=== PATIENT | female | born 1970 | race Caucasian/White ===

== ENCOUNTER 2017-06-10 18:50 | Emergency (ER) | payer BC, OTHER ==
[~2017-06-10] VITALS: Ht 195.6 cm; Wt 103.6 kg
[2017-06-10 18:52] VITALS: TEMP 36.9; Ht 195.6 cm; Wt 103.6 kg
[2017-06-10] MEDS ORDERED: CEFTRIAXONE SOD INJ 1 GM ADDVIAL IV STA (19:00)
--- NOTE | 2017-06-10 19:08 | EMERGENCY ROOM VISIT NOTE ---
History Report prepared by Ashlynibarcadio: Tracie Krause Under the Supervision of: Dr. Bk Martin D.O. First contact with patient: 18:56 Chief Complaint: SWELLING TO EXTREMITY Stated Complaint: SWOLLEN L LEG BELOW KNEE,RED AND WARM History of Present Illness The patient is a 46 year old female who presents to the Emergency Room with complaints of worsening swelling to her left lower leg for the past 4 to 5 days. She describes her leg as feeling "prickly and burning", but rates her pain as a 0/10. She admits her left ankle is swollen and feels "stiff". She denies any swelling in her groin. She admits to a history of eczema and states she has experienced issues with cellulitis in the past. She denies any history of DVT's. She denies any recent fevers. The patient states there is no chance of . She notes right before Hardy, she developed a rash on her trunk area, and was placed on Prednisone by her PCP. Source of History: patient Onset: 4 to 5 days [employer] Position: leg (left lower leg) Symptom Intensity: 0/10 Quality: burning ("prickly and burning") Timing: worsening Associated Symptoms: No fevers Review of Systems See HPI for pertinent positives & negatives. A total of 10 systems reviewed and were otherwise negative. Past Medical & Surgical Medical Problems: (1) Eczema Surgical Problems: (1) Ankle fracture, right (2) History of thyroidectomy, subtotal Social History Smoking Status: Never Smoker Alcohol Use: none Drug Use: none Marital Status: single Housing Status: lives alone Occupation Status: employed Current/Historical Medications Scheduled Cephalexin Monohydrate (Keflex), 500 MG PO QID Levothyroxine Sodium (Levothyroxine Sodium), 50 TAB PO DAILY Multivitamin (Multivitamin), 1 TAB PO DAILY Sulfa/Trimethoprim (Bactrim Ds 800MG/160MG), 1 TAB PO BID Allergies Coded Allergies: Hydrocodone (Verified Allergy, Unknown, hullicinate, 06/10/17) Physical Exam Vital Signs Date Time Temp Pulse Resp B/P (MAP) Pulse Ox O2 Delivery O2 Flow Rate FiO2 06/10/17 20:52 76 18 120/70 98 06/10/17 18:52 36.9 90 18 129/81 99 Room Air Physical Exam GENERAL: Patient is awake, alert, and in no acute distress. Patient is resting comfortably and showing no signs of anxiety EYES: The conjunctivae are clear. The pupils are round and reactive. EARS, NOSE, MOUTH AND THROAT: The nose is without any evidence of any deformity. Mucous membranes are moist tongue is midline NECK: The neck is nontender and supple. RESPIRATORY: Normal respiratory effort is noted there is no evidence of wheezing rhonchi or rales CARDIOVASCULAR: Regular rate and rhythm noted there no murmurs rubs or gallops normal S1 normal S2 GASTROINTESTINAL: The abdomen is soft. Bowel sounds are present in all quadrants. Abdomen is nontender MUSCULOSKELETAL/EXTREMITIES: There is no evidence of gross deformity full range of motion is noted in the hips and shoulders SKIN: There was a generalized erythematous rash noted over the body, consistent with the patients history. There appears to be lymphadenopathy of the left groin. There was symmetric swelling of the left leg with erythema around right ankle, extending proximally, consistent with cellulitis, pulses are symmetric. There are no petechiae, pallor or cyanosis noted. NEUROLOGIC: Patient is awake alert and oriented x3 Medical Decision & Procedures ER Provider Diagnostic Interpretation: Radiology results as stated below per my review and radiologist interpretation: L ANKLE MIN 3 VIEWS ROUTINE CLINICAL HISTORY: left ankle pain pain COMPARISON: None. DISCUSSION: Past reaction along the medial malleolus. Disruption of ankle mortise with abnormal alignment of the talar dome and tibia. Considerable reactive osteophytic change to the distal fibula. Linear pain traversing the base of what appears to be the fifth metatarsal. There is no evidence for soft tissue swelling. IMPRESSION: 1. Disruption of ankle mortise. 2. Periosteal reaction and bony fragmentation of the distal tibia medially as well as at the medial malleolus. 3. Several old avulsions tip distal fibula. 4. Appearance is consistent with that of disruption of the tendinous structures of the ankle with stress related periosteal reaction and old avulsions consistent with old trauma. 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 It may contain grammatical, syntax or spelling errors. Electronically signed by: Isael Pritchett M.D. 06/10/2017 7:28 PM L VENOUS DOPP LOWER EXT UNILAT CLINICAL HISTORY: swelling pain. Edema. TECHNIQUE: Venous Doppler COMPARISON STUDY: None FINDINGS: Study is negative for deep venous thrombosis. Compressibility and augmentation characteristics are unremarkable. Mild soft tissue edema of the calf is present. There are several mildly prominent lymph nodes left inguinal region measuring up to 1.5 cm. These again are most likely reactive. IMPRESSION: 1. Study is negative for deep venous thrombosis. 2. Soft tissue edema. 3. Mild reactive left inguinal adenopathy. The above report was generated using voice recognition software. It may contain grammatical, syntax or spelling errors. Electronically signed by: Isael Pritchett M.D. 06/10/2017 8:37 PM Laboratory Results 06/10/17 19:19 Red Blood Count 4.34, Mean Corpuscular Volume 87.1, Mean Corpuscular Hemoglobin 30.4, Mean Corpuscular Hemoglobin Concent 34.9, Mean Platelet Volume 10.7, Neutrophils (%) (Auto) 68.4, Lymphocytes (%) (Auto) 19.8, Monocytes (%) (Auto) 8.6, Eosinophils (%) (Auto) 2.8, Basophils (%) (Auto) 0.3, Neutrophils # (Auto) 5.17, Lymphocytes # (Auto) 1.50, Monocytes # (Auto) 0.65, Eosinophils # (Auto) 0.21, Basophils # (Auto) 0.02 06/10/17 19:19 Test 06/10/17 19:19 White Blood Count 7.56 K/uL (4.8-10.8) Red Blood Count 4.34 M/uL (4.2-5.4) Hemoglobin 13.2 g/dL (12.0-16.0) Hematocrit 37.8 % (37-47) Mean Corpuscular Volume 87.1 fL (80-100) Mean Corpuscular Hemoglobin 30.4 pg (25-34) Mean Corpuscular Hemoglobin Concent 34.9 g/dl (32-36) Platelet Count 231 K/uL (130-400) Mean Platelet Volume 10.7 fL (7.4-10.4) Neutrophils (%) (Auto) 68.4 % Lymphocytes (%) (Auto) 19.8 % Monocytes (%) (Auto) 8.6 % Eosinophils (%) (Auto) 2.8 % Basophils (%) (Auto) 0.3 % Neutrophils # (Auto) 5.17 K/uL (1.4-6.5) Lymphocytes # (Auto) 1.50 K/uL (1.2-3.4) Monocytes # (Auto) 0.65 K/uL (0.11-0.59) Eosinophils # (Auto) 0.21 K/uL (0-0.5) Basophils # (Auto) 0.02 K/uL (0-0.2) RDW Standard Deviation 39.6 fL (36.4-46.3) RDW Coefficient of Variation 12.3 % (11.5-14.5) Immature Granulocyte % (Auto) 0.1 % Immature Granulocyte # (Auto) 0.01 K/uL (0.00-0.02) Erythrocyte Sedimentation Rate 11 mm/hr (0-21) Anion Gap 4.0 mmol/L (3-11) Est Creatinine Clear Calc Drug Dose 119.0 ml/min Estimated GFR () 93.9 Estimated GFR (Non- 81.0 BUN/Creatinine Ratio 18.1 (10-20) Calcium Level 8.4 mg/dl (8.5-10.1) Total Bilirubin 0.4 mg/dl (0.2-1) Direct Bilirubin 0.1 mg/dl (0-0.2) Aspartate Amino Transf (AST/SGOT) 12 U/L (15-37) Alanine Aminotransferase (ALT/SGPT) 21 U/L (12-78) Alkaline Phosphatase 61 U/L (45-117) C-Reactive Protein 0.64 mg/dl (0-0.29) Total Protein 7.0 gm/dl (6.4-8.2) Albumin 3.4 gm/dl (3.4-5.0) Lipase 125 U/L (73-393) Human Chorionic Gonadotropin, Qual NEG (NEG) Laboratory results per my review. Medications Administered Medications (Trade) Dose Ordered Sig/Cora Route Start Time Stop Time Status Last Admin Dose Admin Ceftriaxone Sodium (Rocephin Inj) 1 gm NOW STAT IV 06/10/17 19:00 06/10/17 19:02 DC 06/10/17 19:26 1 GM ED Course 1858: The patient was evaluated in room C10. A complete history and physical examination were performed. 0: Rocephin 1 gm IV. 2044: I reevaluated the patient. She is feeling well and resting comfortably. I discussed her results and discharge instructions and she verbalized complete understanding and agreement. 2044: Trimethoprim/Sulfamethoxazole 800/160 mg 1 homepack PO, Keflex 500 mg 1 homepack PO. Medical Decision Prior records reviewed and summarized as above. Triage Nursing notes reviewed. The patient's history was concerning for swelling and redness of the skin. Differential diagnosis: Etiologies such as cellulitis, abscess, MRSA infection, DVT, necrotizing fasciitis, dermatitis, drug eruption, as well as others were entertained. The patient is a 46-year-old female who presented to the emergency department for an evaluation of left lower extremity swelling. The patient has a history of a chronic rash but she's not had symptoms this bad for many years. She does have some swelling of her left leg which appears to be consistent with cellulitis. She's had chronic injuries to her ankles because of playing basketball she was in college. The patient did not appear to have signs of DVT on ultrasound. She was started on antibiotics in the emergency department. I discussed the patient's laboratory radiographic studies with her. She was encouraged to keep the leg elevated as much as possible and continue all medications as prescribed. I also encouraged her to follow-up with her primary care physician for further evaluation or return to the emergency department immediately if symptoms change worsen or the need arises. Medication Reconcilliation Current Medication List: was personally reviewed by me Blood Pressure Screening Patient's blood pressure: Normal blood pressure Blood pressure disposition: Did not require urgent referral Impression Primary Impression: Cellulitis of left lower extremity Scribe Attestation The scribe's documentation has been prepared under my direction and personally reviewed by me in its entirety. I confirm that the note above accurately reflects all work, treatment, procedures, and medical decision making performed by me. Departure Information Dispostion Home / Self-Care Prescriptions Sulfa/Trimethoprim (Bactrim Ds 800MG/160MG) Tab 1 TAB PO BID, #20 TAB Prov: Bk Martin, DO 06/10/17 Cephalexin Monohydrate (KEFLEX) 500 Mg Cap 500 MG PO QID, #40 CAP Prov: Bk Martin, DO 06/10/17 Patient Instructions Cellulitis [place], My [facility] Additional Instructions Call your family to schedule a follow-up appointment. Continue all medications as prescribed. Continue using Motrin and Tylenol as directed for pain. Return to the emergency Department immediately if symptoms change worsen or the need arises.
--- NOTE | 2017-06-10 19:29 | DIAGNOSTIC IMAGING REPORT ---
L ANKLE MIN 3 VIEWS ROUTINE CLINICAL HISTORY: left ankle pain pain COMPARISON: None. DISCUSSION: Past reaction along the medial malleolus. Disruption of ankle mortise with abnormal alignment of the talar dome and tibia. Considerable reactive osteophytic change to the distal fibula. Linear pain traversing the base of what appears to be the fifth metatarsal. There is no evidence for soft tissue swelling. IMPRESSION: 1. Disruption of ankle mortise. 2. Periosteal reaction and bony fragmentation of the distal tibia medially as well as at the medial malleolus. 3. Several old avulsions tip distal fibula. 4. Appearance is consistent with that of disruption of the tendinous structures of the ankle with stress related periosteal reaction and old avulsions consistent with old trauma. 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 It may contain grammatical, syntax or spelling errors. Electronically signed by: Isael Pritchett M.D. 06/10/2017 7:28 PM Dictated Date/Time: 06/10/2017 7:24 PM
[2017-06-10 19:39] LABS: BASO % 0.3 %; BASO ABS # 0.02 K/uL (0-0.2); EOS % 2.8 %; EOS ABS # 0.21 K/uL (0-0.5); HEMATOCRIT 37.8 % (37-47); HEMOGLOBIN 13.2 g/dL (12.0-16.0); IG# 0.01 K/uL (0.00-0.02); LYMPH % 19.8 %; MEAN CELL VOLUME 87.1 fL (80-100); MEAN CORPUSCULAR HEMOGLOBIN 30.4 pg (25-34); MEAN CORPUSCULAR HGB CONC 34.9 g/dl (32-36); MEAN PLATELET VOLUME 10.7 fL (7.4-10.4); MONO % 8.6 %; MONO ABS # 0.65 K/uL (0.11-0.59); NEUT % 68.4 %; NEUT ABS # 5.17 K/uL (1.4-6.5); PLATELET COUNT 231 K/uL (130-400); RED CELL DISTRIBUTION WIDTH CV 12.3 % (11.5-14.5); RED CELL DISTRIBUTION WIDTH SD 39.6 fL (36.4-46.3); WHITE BLOOD COUNT 7.56 K/uL (4.8-10.8)
[2017-06-10] MEDS ORDERED: LEVO50TA6 PO (20:00)
[2017-06-10] MEDS ORDERED: MULT-506 PO (20:03)
[2017-06-10 20:04] LABS: ALBUMIN 3.4 gm/dl (3.4-5.0); CALCIUM 8.4 mg/dl (8.5-10.1); CREATININE 0.86 mg/dl (0.60-1.20); POTASSIUM 3.5 mmol/L (3.5-5.1)
--- NOTE | 2017-06-10 20:39 | DIAGNOSTIC IMAGING REPORT ---
L VENOUS DOPP LOWER EXT UNILAT CLINICAL HISTORY: swelling pain. Edema. TECHNIQUE: Venous Doppler COMPARISON STUDY: None FINDINGS: Study is negative for deep venous thrombosis. Compressibility and augmentation characteristics are unremarkable. Mild soft tissue edema of the calf is present. There are several mildly prominent lymph nodes left inguinal region measuring up to 1.5 cm. These again are most likely reactive. IMPRESSION: 1. Study is negative for deep venous thrombosis. 2. Soft tissue edema. 3. Mild reactive left inguinal adenopathy. The above report was generated using voice recognition software. It may contain grammatical, syntax or spelling errors. Electronically signed by: Isael Pritchett M.D. 06/10/2017 8:37 PM Dictated Date/Time: 06/10/2017 8:35 PM
[2017-06-10] MEDS ORDERED: CEPH500C2 PO (20:42)
[2017-06-10] MEDS ORDERED: SULF800T23 PO (20:42)
[2017-06-10] MEDS ORDERED: SEPTRA DS HOME PACK 1 EA VIAL PO ONE (20:45)
[2017-06-10] MEDS ORDERED: CEPHALEXIN 500MG HOME PACK 1 EA BTL PO ONE (20:45)
[2017-06-10 20:52] VITALS: BP 120/70; PULSE 76; O2SAT 98
== END 2017-06-10 20:52 | disposition home or self-care (01) ==
LOC: C.EDB 18:52 → C.EDC 20:52
DX: L03.116 Cellulitis of left lower limb (principal); L30.9 Dermatitis, unspecified; Z79.899 Other long term (current) drug therapy